=== PATIENT | male | born 1955 | race Caucasian/White ===

== ENCOUNTER → 2016-08-17 | Outpatient (REF) ==
--- NOTE | 2016-08-17 10:53 | DI ---
EXAM: PA and lateral views of the chest HISTORY: Annual employment screening COMPARISON: Chest x-ray 12/01/2014 FINDINGS: The cardiomediastinal silhouette is normal. There is no pneumothorax or pleural effusion . There is no consolidation, nodule or mass. Calcified granuloma in the left lung is unchanged sinc e prior exam. The osseous structures are stable. IMPRESSION: No acute cardiopulmonary process and no interval change.
== END ==
LOC: RAD 10:05
DX: Z02.89 Encounter for other administrative examinations (principal)